=== PATIENT | female | born 1975 | race African-American/Black ===

== ENCOUNTER → 2020-09-10 | Outpatient (CLI) | payer OTHER ==
--- NOTE | 2020-09-10 09:35 | RAD ---
PA and lateral chest radiograph 09/10/2020 CLINICAL HISTORY: Cough and congestion. PA and lateral digital radiographs of the chest were obtained. No previous studies are available for comparison. The cardiac and mediastinal silhouettes are within normal limits in size and configuratio n. No pulmonary infiltrate is seen. No pleural effusion or pneumothorax is noted. The osseous structu res are grossly intact. IMPRESSION: No acute abnormality is seen. Electronically signed by: Jared Ortiz MD (09/10/2020 9:33 AM) [id number]
== END ==
LOC: PMG 09:15
PROVIDERS: ATTEND Nurse Practitioner Family
DX: J06.9 Acute upper respiratory infection, unspecified (principal)
CPT/HCPCS: 71046

== ENCOUNTER → 2021-07-11 | Outpatient (CLI) | payer OTHER ==
--- NOTE | 2021-07-12 10:08 | RAD ---
US PELVIS W/TV History: Reason: HX OF FIBROIDS, FOLLOW UP COMPLEX LT OV CYST / Spl. Instructions: / History: Comparison: None Technique: Grayscale and color Doppler imaging of the pelvis was performed using transabdominal and t ransvaginal technique. Findings: The uterus measures 10.4 x 6.4 x 5.1 cm. Heterogeneous posterior myometrial mass measures 2.0 x 2.0 x 1.8 cm. Posterior lower myometrial mass measures 1.5 x 1.5 x 1.3 cm. Additional lower posterior tanya metrial mass measures 1.2 x 1.5 x 1.3 cm.. The endometrial stripe measures 11 mm. Minimal fluid with in the cervical canal. Right ovary measures 3.0 x 2.1 x 1.5 cm. Simple cyst adjacent to the right ovary measures 1.3 x 1.2 x 1.3 cm. Left ovary measures 3.9 x 2.5 x 2.4 cm. Complicated left ovarian follicle measures 2.5 x 1.9 x 1.7 cm in Normal Doppler flow to the ovaries. No adnexal masses are seen. IMPRESSION: 1. Several posterior myometrial masses, likely fibroids. 2. Small right paraovarian cyst. 3. Complicated left ovarian follicle, may represent hemorrhagic follicle. 4. Minimal fluid within the cervical canal. Electronically signed by: Andrea Waller DO (07/12/2021 10:06 AM) [id number]
== END ==
LOC: US 15:46
PROVIDERS: ATTEND Obstetrics & Gynecology
DX: Z09 Encounter for follow-up examination after completed treatment for conditions other than malignant neoplasm (principal); N83.291 Other ovarian cyst, right side; N83.292 Other ovarian cyst, left side; D25.9 Leiomyoma of uterus, unspecified
CPT/HCPCS: 76830; 76856